=== PATIENT | female | born 1955 | race Caucasian/White ===

== ENCOUNTER → 2021-05-25 09:49 | Outpatient (CLI) | payer MEDICARE, SELFPAY ==
[2021-05-25 15:14] LABS: COVID19 -Nasal RAPID Negative (Negative)
== END ==
PROVIDERS: PCP Naturopath; Visit Provider Specialist
DX: Z20.822 Contact with and (suspected) exposure to COVID-19 (principal); Z01.812 Encounter for preprocedural laboratory examination
CPT/HCPCS: 87635

== ENCOUNTER 2021-05-26 08:38 | Day surgery (SDC) | payer MEDICARE, SELFPAY ==
[2021-05-18 07:39] VITALS: BMI 31.6
[2021-05-26] VITALS (20 sets, daily range): BP systolic 67–148; BP diastolic 35–81; PULSE 56–80; RESP 8–19; TEMP 35.8–36.5; O2SAT 93–100; BMI 31.6
--- NOTE | 2021-05-26 | PATH_ITS ---
[facility] Accession Number: [id number] . 01 Material submitted: . uterus - UTERUS,BILATERAL OVARIES, BILATERAL FALLOPIAN TUBES . 02 Diagnosis: Uterus, Bilateral Ovaries and Fallopian Tubes, Supracervical Hysterectomy and Bilateral Salpingo-oophorectomy (Weight 45 grams): Basalis endometrium with patchy cystic atrophy; negative for glandular hyperplasia, cytologic atypia, or malignancy. Myometrium involved by adenomyosis. Uterine serosa with one subseroal leiomyoma (12 mm). Attached ovary with a small benign serous cyst (3 mm) and with a benign subcapsular fibroma with dense collagen and calcifications 3 mm). Detached ovary with a benign serous cyst (5 mm) and with cortical adhesions to adnexal fibrovascular tissue. Attached, previously disrupted fallopian tube with multiple benign paratubal cysts (1-12 mm); negative for atypia or malignancy. Detached fallopian tube with serosal adhesions; negative for atypia or malignancy. [facility] 05/29/2021 1339 Local . 02 Electronically signed: . Jolynn Estrada MD, Pathologist NPI- [id number] . 01 Gross description: . The specimen is received in formalin, labeled uterus, bilateral ovaries, and bilateral fallopian tubes, and consists of a 45 g previously disrupted supracervically resected uterus measuring 4.5 cm from superior fundus to lower uterine segment by 5.0 cm from cornu to cornu by 3.5 cm from anterior to posterior. The serosa is adrian-pink and smooth. Sectioning reveals a 3.0 x 1.5 cm, distorted, adrian-pink, focally hemorrhagic endometrium measuring 0.1 cm in thickness. The myometrium is adrian-pink and trabeculated with adenomyosis, measuring up to 2.0 cm in thickness. There is a 1.2 x 1.2 x 1.0 cm, adrian-white, whorled, subserosal leiomyoma with no areas of hemorrhage, necrosis, or cystic degeneration. The attached ovary measures 2.2 x 1.2 x 1.0 cm and displays a adrian, cerebriform external surface. Sectioning reveals a 0.2 x 0.2 x 0.2 cm, adrian, smooth-walled cyst with no papillary excrescences. The previously ligated attached fallopian tube measures 6.0 cm in length by 1.0 cm in diameter and displays a adrian-pink, smooth external surface with multiple paratubal cysts ranging from 0.1 cm to 1.2 cm. Also received is a detached ovary measuring 2.5 x 1.2 x 1.0 cm with adrian, cerebriform external surface. Sectioning reveals a 0.5 x 0.4 x 0.4 cm, adrian, smooth-walled cyst with no papillary excrescences. There is a detached, fragmented fallopian tube measuring 6.5 cm in length by 0.8 cm in diameter with a adrian-pink, ragged serosa. Compound Coating Machine Offbearer sections are submitted. . A1-A2: Lower uterine segment. A3-A5: Uterus, to include insurance follow up representative leiomyoma. A6: Compound Coating Machine Offbearer attached ovary. A7: Compound Coating Machine Offbearer cross-sections of attached fallopian tube with bisected fimbriae. A8: Compound Coating Machine Offbearer detached ovary. A9: Compound Coating Machine Offbearer cross-sections of fragmented fallopian tube and bisected fimbriae. ([id number]) /R 05/27/2021 1805 Local . 02 Pathologist provided ICD-10: N95.0 . 02 CPT . 163499 Performed at: 01 [facility] [address] [address], [place], [place] [id number] MD Rashaad Cobb MD Phone: [phone] Performed at: 02 [facility] [id number] [place] [id number] MD Deisi Servin MD Phone: [phone]
[2021-05-26] MEDS: LACTATED RINGERS 1,000 ML 100 ML IV ×3 (08:52→13:43)
--- NOTE | 2021-05-26 09:33 | PM.PREOP ---
Pre-operative Note COVID-19 COVID-19 status: Negative Result date/Date tested (Pos, Neg/Pending): 05/25/21 Interval Note History & Physical reviewed/Exam performed by Physician: Yes Changes to H&P: No
[2021-05-26] MEDS: CEFAZOLIN 1 GM VIAL 2 GM IV (10:23)
--- NOTE | 2021-05-26 10:37 | SUR.OPER ---
Lithotomy on padded OR bed. [place] Pad Positioner under torso. Head on pillow, arms padded and tucked at sides. Legs secured in padded yellow fins stirrups.
[2021-05-26] MEDS: BUPIVACAINE 0.5% (PF) VIAL 30 ML INJ (10:41)
[2021-05-26] MEDS: ROPIVACAINE 0.2% PF 2 MG/ML 10ML AMP 20 ML INJ (10:42)
--- NOTE | 2021-05-26 11:34 | P.OP_ITS ---
Operative Date/Time/Diagnoses Date of procedure: 05/26/21 Time of procedure: 11:34 Pre-op diagnosis: postmenopausal bleeding Post-op diagnosis: same Procedure & Clinicians Procedure: laparoscopic supracervical hysterectomy with bilateral salpingo oophorectomies Same procedure as scheduled: Yes Indications: postmenopausal bleeding despite multiple D&Cs Surgeon: Nerissa Henao Snow Plow Tractor Operator: Daryl Kwan Click Yes if Unassisted: No Anesthesia Type: General Operative Notes Findings: Normal appearing ovaries. Status post bilateral tubal ligation with Hulka clips. Small subserosal fibroid otherwise normal appearing uterus. Adhesion between the ascending colon and the anterior abdominal wall. Closure Type: primary Specimen(s): other ( uterus above the level the cervix and bilateral tubes and ovaries) Estimated Blood Loss (mL): 5 Procedure in detail: Patient is brought to the operating room where she underwent general anesthesia and placed in low yellowfin stirrups. She was prepped and draped in the usual sterile fashion. A check list was reviewed with the staff in the room prior to beginning of the case. Patient had pulsatile stockings in place and functional. 2 g of Ancef were in prior to beginning of the case.. A Fan catheter was placed. A single-tooth tenaculum was placed on the anterior lip of the cervix and the cervix dilated to a #6 Hegar dilator. The uterine manipulator was placed through the cervix into the uterus with the balloon inflated with 3 mL of air. The area of the umbilical incision and the 5 mm right and left lower quadrant incisions were injected with Marcaine. An incision was made with scalpel. The verries needle was placed into the abdomen and confirmed in the appropriate place with withdrawal on a syringe and then free flow of fluid down through the needle. The abdomen was insufflated with CO2. The needle was removed and a 5 mm trocar placed without difficulty. There did not appear to be any damage is placement of the trocar. The right and left lower quadrant incisions were made with the scalpel and the trochars placed without damage to internal structures. The PK forceps were used to bring down adhesion of the ascending colon with the anterior abdominal wall. The PK forceps were used to cauterize the infundibulopelvic ligaments. Sequential bites were taken along the Broad ligament followed by the round ligaments on both sides. Sequential bites were taken down the broad ligaments. The uterine arteries were cauterized. An incision was made above the level bladder pushing the bladder away from the cervix. The BLAINE loop was placed around the uterus and the uterus was amputated above the level of the bladder. Bleeding was controlled with the PK forceps. The PK forceps were used to cauterize in the endocervical canal. A supracervical incision was made and an 11 mm port placed. A 15 mm Endo Catch bag was placed in the abdomen. The uterus, tubes and ovaries were placed in the bag and brought up through the suprapubic port site. The Jordan O was placed. The uterus was hand morselized. The abdomen was reinsufflated and adequate hemostasis was noted. 10 cc of ropivacaine were placed over the cervical stump. The trochars were removed and the CO2 allowed escape from the abdomen. The fascia layer of the suprapubic site was repaired with 0 Polysorb suture. 3 0 Vicryl suture was used to reapproximate the adipose layer. Skin was closed with 4-0 Monocryl suture at the suprapubic site and the other 3 sites. The patient went to recovery room in good condition. Counts of instruments and sponges were correct. Dr. Kwan was present throughout the case to assist with holding the camera, retracting, cauterizing and cutting the structures on the left side of the patient, as well as assisting with morselization of the uterus. Complications: none Post-operative Condition: stable Disposition: Acute Care Plan for aftercare: home when awake and stable
[2021-05-26] MEDS: OXYCODONE IR 5 MG TABLET PO (12:04)
--- NOTE | 2021-05-26 12:25 | SUR.PHASEI ---
patient stable. report called to KENNY Reyes on med surg. ready for transport. abdomen remains soft. dressings c/d/i.
[2021-05-26] MEDS: KETOROLAC 30 MG/ML VIAL IV ×2 (13:14→18:33)
--- NOTE | 2021-05-26 22:49 | PC.NURSE ---
Pt requested to ambulate, was able to walk throughout acute care floor with IV pole in hand and CLERICAL AND ADMINISTRATIVE WORKERS at side. Pt tolerated ambulation without any difficulty
[2021-05-27] VITALS: O2SAT 96
[2021-05-27] MEDS: KETOROLAC 30 MG/ML VIAL IV ×2 (01:25→06:30)
[2021-05-27 05:54] VITALS: BP 134/71; PULSE 72; RESP 20; TEMP 36.2; O2SAT 95
[2021-05-27] MEDS: SODIUM CHLORIDE 0.9% FLUSH 10 ML IV ×2 (06:21→09:38)
[2021-05-27] MEDS: LEVOTHYROXINE 112 MCG TABLET PO (06:21)
[2021-05-27 07:45] VITALS: BP 137/72; PULSE 62; RESP 16; TEMP 35.8; O2SAT 97
[2021-05-27 08:00] VITALS: O2SAT 97
[2021-05-27] MEDS: INFLUENZA HD VACCINE 0.7 ML SYRINGE IM (09:37)
--- NOTE | 2021-05-27 10:15 | P.DS_ITS ---
History of Present Illness History of Present Illness Date Patient Seen: 05/27/21 Time Patient Seen: 10:15 Chief complaint: *OPB* Narrative: Patient underwent a laparoscopic supracervical hysterectomy with bilateral salpingo oophorectomy for postmenopausal bleeding on 05/26/2021 Discharge Providers Provider Discharge Date: 05/27/21 Primary care physician: Thu Boswell MD Discharge provider: Nerissa Henao MD Summary Hospital Course Discharge Diagnosis: Postmenopausal bleeding Hospital Course: Patient underwent a laparoscopic supracervical hysterectomy with bilateral salpingo oophorectomy on 05/26/2021. Patient is urinating well. She is passing gas. She is tolerating regular diet. She is having some pain and bloating but feels she is well enough to be discharged home Status at Discharge Cognitive/behavioral status at discharge: oriented Functional status at discharge: independent ambulation Overall status at discharge: patient is progressing back to baseline Time Spent with Patient Time spent: Less than 30 minutes Exam Vital Signs (past 8 hours): - 05/27/21 05:54 05/27/21 07:45 Temperature 97.2 F L 96.5 F L Pulse Rate 72 62 Respiratory Rate 20 16 Blood Pressure 134/71 137/72 Pulse Oximetry 95 97 Oxygen Delivery Method Room Air Oxygen Flow Rate 0 Narrative Exam Narrative: Abdomen is soft, minimally bloated, appropriately tender. Incisions are clean, dry, intact. There is some slight bleeding from the umbilical incision. Extremities without edema and nontender. [facility] Medical History (Updated 05/18/21 @ 07:44 by Gloria Mccain RN) Hypothyroid Surgical History (Updated 05/26/21 @ 11:31 by Nerissa Henao MD) History of hysteroscopy (07/01/15) History of tonsillectomy Status post dilation and curettage Status post tubal ligation Social History household members: spouse Smoking Status: Former smoker alcohol intake: current Discharge Assessment & Plan Assessment and Plan Assessment: Patient is stable post laparoscopic supracervical hysterectomy. Plan of Treatment: Discharge home. Routine precautions reviewed with the patient. Discharge Plan Discharge Plan Patient Disposition: Home Discharge orders & Medications Discharge Orders: Discharge (Order); Ordered 05/27/21 Ordered By: Nerissa Henao Prescriptions: Continued levothyroxine 112 mcg capsule 112 mcg PO DAILY RF: 0 ketotifen fumarate [Zaditor] 0.025 % (0.035 %) Drops 2 drp OPHTHALMIC (EYE) DAILY PRN (Reason: Dry Eye(S)) RF: 0 fluticasone propionate [Flonase Allergy Relief] 50 mcg/actuation [place],Suspension 1 spray INTRANASAL DAILY RF: 0 Advil Cold and Sinus 30-200 mg Capsule 360 cap PO DIRECTED PRN (Reason: Allergy Symptoms) RF: 0 Zyrtec 10 mg Capsule 10 mg PO DAILY RF: 0 Follow up/Referrals: Nerissa Henao MD [Physician] - As previously scheduled (Patient has an appointment scheduled on June 14 in [place]) Thu Boswell MD [Primary Care Provider] - Diet/Activity/Treatments Diet: Regular Activity: Nothing in vagina for 1 week, no other restrictions Skin/Wound/Dressing Care Report to your healthcare provider any signs of infection, such as:: chills, fever, increased pain and unusual redness Dressing: May remove Band-Aids after 24 hours. Leave Steri-Strips in place for 1 week. Can get wet just pat dry. In 1 week get the Steri-Strips wet and rub off Visit Report/Discharge Packet Instructions: DI for Hysterectomy, DI for Laparoscopy, DI for Constipation, DI for Taking Pain Medication Discharge Data Primary Care Provider: Thu Boswell Attending Provider: Nerissa Henao Quality VTE Deep Vein Thrombosis/Pulmonary Embolism Present on Admission: No
[2021-05-27] MEDS: MORPHINE 2 MG/ML INJ IV (10:43)
[2021-05-27] MEDS: ONDANSETRON 4 MG/2 ML INJ IV (10:46)
--- NOTE | 2021-05-27 11:45 | PC.NURSE ---
Discharge: Pt feels ready to d/c home. D/c instructions given by Dr. Henao. Pt has been up indep in room. No use of assistive devices. No use of pain medication, is having some pain/tenderness in abd but declined tylenol. At d/c pt did take a sm dose of morphine, she reported same was effective for her abd tenderness. Tolerates diet w/out problems. Vds w/out diff, just a few sm spots of vag flow. Bandaids are intact to abd, they have old drainage but are intact. Wound care instructions by . Priority load pass given. D/c packet given and reviewed. Rx has been esent. Questions answered. Pt d/c to home via auto w/spouse.
--- NOTE | 2021-05-27 12:39 | CM.DANOTE ---
DCP: Case received, EMR reviewed and met with patient. Introduced self and role. Was able to obtain information regarding patient's baseline activity status prior to hospitalization. DCP assessment completed with information currently available. Patient is a 65 year old female who admitted yesterday morning to the care of the DIALYSIS PATIENT CARE TECHNICIAN team. PCP: Dr. Boswell. [facility] Patient came to the hospital for a surgical procedure. She had a laparoscopic supracervical hysterectomy. Patient had her surgery yesterday morning. Met with patient in her room. She was sitting up in bed, alert and oriented, pleasant. Confirmed that she resides in [place] with her spouse, Rob. She is independent at her baseline. She stated, she does not have to come to the [facility] often, they have a small hospital there, [facility], and her primary provider is there. She is hoping to leave soon so she can catch the earlier ferry home. Patient is self employed. P: Patient is to be discharged home today with no needs. She will get a medical voucher for the ferry. Dorota Quintana RN/Golf Manager Discharge Planning/Care Management Advanced directive, confirm from FAMILY Start: 05/26/21 13:31 Freq: Q24H Status: Discharge Protocol: Document 05/26/21 15:30 GMP (Rec: 05/26/21 19:44 [facility] [id number]) Advance Directive, confirm on record Time 15:30 Person contacted pt Copy received No CM Discharge Assessment Start: 05/27/21 12:37 Freq: Status: Active Protocol: Document 05/27/21 12:37 (Rec: 05/27/21 12:39 [id number]) Discharge Planning Assessment Assigned Mitten Sewer Dorota Quintana RN/Golf Manager Advance Directives? Yes Advance Directives on File No History Provided By Patient,Medical Record Prior Living Arrangements House Household Members spouse Type of transporation used prior to Drives own vehicle admit Independent with ADL's Yes Is patient alert and oriented? Yes Caregiver for Another No Barriers to Discharge No Discharge Plan Home Transportation Arrangement Spouse Referrals Initiated None needed Whiteboard Updated in Patient Room with Yes name and ext. # of Mitten Sewer Review Status In Process Next Review Type Continued Stay Review Pre-Anesthesia Assessment Start: 05/18/21 07:39 Freq: Status: Discharge Protocol: Document 05/18/21 07:39 CAB (Rec: 05/18/21 07:46 [facility] [id number]) Pre-Anesthesia Assessment Patient Information Reviewed Via Chart Review Comment COVID screen @ 05/25/21 Primary Care Provider Nikole Mcmillan Seen Specialist in Last 12 Months Yes Specialist Seen Slubber Machine Operator Primary Language Danish Height 5 ft 7 in Weight 202 lb Body Mass Index (BMI) 31.6 Barriers to Learning None Anesthesia Review Requested No Pool Player No History of Falling (Recent or History of No ) Patient is completely paralyzed or No completely immobile Mental Status Oriented to own ability Hx Sleep Apnea No Currently Taking a Beta Arti No Anti-Coagulant Therapy No Has a Enhanced Environmental Operator No Cardiac Testing No Hx Pacemaker/ICD No Pacemaker Rep Required? No Cardiac Clearance Received Not Applicable Urinary Catheter Present No Hx Urinary Self Catheterization No Diabetes No Patient No Lactating No Marital Status Lives With spouse Patient Discharge Plan Description Return Home Comment Lives on [facility]
== END 2021-05-27 11:20 | disposition home or self-care (01) ==
LOC: OR 08:40 → AC 08:41
PROVIDERS: PCP Specialist; Referring Provider Specialist; Visit Provider Specialist
PROC: 0UT94ZL Resection of Uterus, Supracervical, Percutaneous Endoscopic Approach (ICD-10-PCS; CPT 58542; principal; 2021-05-26 09:45)
DX: N95.0 Postmenopausal bleeding (principal); D25.2 Subserosal leiomyoma of uterus; N73.6 Female pelvic peritoneal adhesions (postinfective); E03.9 Hypothyroidism, unspecified; Z23 Encounter for immunization; Z87.891 Personal history of nicotine dependence
CPT/HCPCS: 58542; 90471; 90662; J0690; J1100; J1885; J2270; J2405; J2704; J2795; J3010